=== PATIENT | male | born 2000 | race Two or more races ===

== ENCOUNTER 2021-03-31 11:39 | Emergency (ER) | payer OTHER ==
[2021-03-31 11:59] VITALS: BP 108/67
--- NOTE | 2021-03-31 12:17 | XRAY Report ---
PROCEDURE: Foot 3 View LT INDICATIONS: Trauma TECHNIQUE: 3 views of the foot were acquired. COMPARISON: None. FINDINGS: BONES: No acute, displaced fracture or dislocation. Bipartite medial hallux sesamoid. SOFT TISSUES: No focal abnormality. IMPRESSION: 1.No acute osseous abnormality. Reviewed by: Gil Lopez MD on 03/31/2021 12:16 PM PDT Approved by: Gil Lopez MD on 03/31/2021 12:16 PM PDT Station ID: [id number]
--- NOTE | 2021-03-31 12:57 | ED Physician Documentation ---
PD HPI LOWER EXT INJURY - Stated complaint Stated Complaint: L ANKLE INJURY - Chief complaint Chief Complaint: Ext Problem - History obtained from History obtained from: Patient - Additional information Additional information: Pt c/o L ankle pain after a blunt and twisting injury at work about 2 hours ago. Minimal swelling. Pt has been able to walk on it, but it is sore, he states. No h/o prior injury. No other complaints. He states he is here because his work made him come. Review of Systems Ten Systems: 10 systems reviewed and negative Constitutional: reports: Reviewed and negative Eyes: reports: Reviewed and negative Ears: reports: Reviewed and negative Nose: reports: Reviewed and negative Throat: reports: Reviewed and negative Cardiac: reports: Reviewed and negative Respiratory: reports: Reviewed and negative GI: reports: Reviewed and negative : reports: Reviewed and negative Skin: reports: Reviewed and negative Musculoskeletal: reports: Extremity pain, Joint pain, Pain with weight bearing (mild) Neurologic: reports: Reviewed and negative Psychiatric: reports: Reviewed and negative Endocrine: reports: Reviewed and negative Immunocompromised: reports: Reviewed and negative PD PAST MEDICAL HISTORY - Allergies Allergies/Adverse Reactions: Allergies Allergy/AdvReac Type Severity Reaction Status Date / Time No Known Drug Allergies Allergy Verified 03/31/21 11:58 PD ED PE NORMAL - Vitals Vital signs reviewed: Yes - General General: Alert and oriented X 3, No acute distress, Well developed/nourished - HEENT HEENT: Atraumatic, PERRL, EOMI, Moist mucous membranes - Neck Neck: Supple, no meningeal sign - Respiratory Respiratory: No respiratory distress - Derm Derm: Normal color, Warm and dry, No rash - Extremities Extremities: No deformity, Other (Mild edema and tenderness over anterior L ankle.) - Neuro Neuro: Alert and oriented X 3 - Psych Psych: Normal mood, Normal affect Results - Vitals Vitals: Oxygen O2 Source Room air - Rads (name of study) L ankle XR Radiology: Final report received, EMP read indepedently, See rad report (neg) PD MEDICAL DECISION MAKING - ED course Complexity details: reviewed results, re-evaluated patient, considered differential, d/w patient ED course: XR negative. We discussed symptomatic management at home. Departure - Departure Disposition: 01 Home, Self Care Clinical Impression: Contusion of ankle or foot, left Condition: Stable Instructions: ED Contusion Lower Ext Comments: Your x-ray series looks good. Most likely, you have bruised the front of your foot and ankle. This should begin to feel better on its own in the next couple of days. You may take ibuprofen and/or Tylenol at home to help with the discomfort, as well as using an ice pack as needed. Please follow-up with your primary care physician as needed. You may return to work as soon as you are feeling better. Forms: Activity restrictions Discharge Date/Time: 03/31/21 13:00
== END 2021-03-31 13:00 | disposition home or self-care (01) ==
LOC: ED 11:39
DX: S90.02XA Contusion of left ankle, initial encounter (principal); W20.8XXA Other cause of strike by thrown, projected or falling object, initial encounter; Y99.0 Civilian activity done for income or pay
CPT/HCPCS: 99282; 99283